=== PATIENT | male | born 1945 | race Asian ===

== ENCOUNTER 2017-06-28 08:18 | Emergency (ER) | payer MEDICARE, BC ==
[~2017-06-28] VITALS: Ht 167.6 cm; Wt 91.2 kg
[~2017-06-28 08:18] MED LIST: ASPIRIN81 M1; BISOPROLOL FUMAR5 MG; CALCITRIOL0.25 MCG; HYDRALAZINE HCL50 MG; HYDROXYZINE HCL50 MG; JALYN 0.5-0.41 EACH; LOSARTAN POTAS100 MG; LOSARTAN POTASS25 MG; LOVASTATIN10 MG; PANTOPRAZOLE SO40 MG PO; RENVELA800 MG PO; [UNRECOGNIZED DRUG - OTHER]; [UNRECOGNIZED DRUG - OTHER]
--- OUTSIDE RECORDS SUMMARY | 2017-06-28 08:22 | XMS REPORT | Clinical Summary ---
Author Author MAHI [facility] Address Unknown Phone Unavailable Care Team Providers Care Neurology Epilepsy Physician Name Role Phone PCP Unavailable Allergies Active Allergy Reactions Severity Noted Date Comments Hydromorphone Other (See Comments) High 06/02/2012 Increase heart rate and lethargy Current Medications Prescription Sig. Disp. Refills Start End Date Status Date Children's Aspirin 81 mg Take 81 mg by mouth 3 Active Chew (three) times a week , and Sat. triamcinolone acetonide Inject 10 mg Active (KENALOG) 10 mg/mL intramuscularly once. injection Once a month testosterone cypionate Inject intramuscularly Active (DEPOTESTOTERONE every 30 (thirty) days. CYPIONATE) 100 mg/mL injection loratadine (CLARITIN) 10 Take 10 mg by mouth Active mg tablet daily. pantoprazole (PROTONIX) Take 40 mg by mouth daily Active 40 MG tablet . zolpidem (AMBIEN) 10 mg Take 10 mg by mouth every Active tablet night as needed for Insomnia. acetaminophen (TYLENOL) Take 500 mg by mouth Active 500 MG tablet every 6 (six) hours as needed for Pain. sevelamer (RENVELA) 800 Take 800 mg by mouth 5 Active mg tablet (five) times daily . sildenafil Take 0.5 tablets (10 mg 90 tablet 3 10/09/19 10/09/19 Active (REVATIO,VIAGRA) 20 mg total) by mouth 2 (two) 17 18 tabletIndications: times daily. Primary pulmonary hypertension (HCC) multivitamin with Take 1 tablet by mouth Active minerals tablet daily TAKES RENAL TAB WITH ZINC . hydrOXYzine (ATARAX) 50 Take 25 mg by mouth every Active MG tablet 6 (six) hours as needed for Itching . midodrine (PROAMATINE) 5 Take 2 tablets (10 mg 24 tablet 5 03/28/20 Active MG tablet total) by mouth 3 (three) 17 times a week On dialysis days. montelukast (SINGULAIR) Take 10 mg by mouth daily Active 10 mg tablet as needed. lanthanum (FOSRENOL) 1000 Take 1,000 mg by mouth 3 Active MG chewable tablet (three) times daily with meals. cinacalcet (SENSIPAR) 60 Take 60 mg by mouth Active MG tablet daily. vortioxetine (TRINTELLIX) Take 1 tablet by mouth Active 5 mg Tab daily. megestrol (MEGACE) 400 Take 100 mg by mouth Active mg/10 mL (40 mg/mL) daily. suspension ALPRAZolam (XANAX) 0.25 Take 0.25 mg by mouth 2 Active MG tablet (two) times daily as needed for Anxiety. oseltamivir (TAMIFLU) 30 Take 30 mg by mouth as Active MG capsule directed 1 capsule after every hemodialysis appointment . cyanocobalamin (VITAMIN Inject 1,000 mcg 06/21/19 Discontin B-12) 1,000 mcg/mL intramuscularly every 30 18 ued injection (thirty) days . cinacalcet (SENSIPAR) 30 Take 60 mg by mouth daily 10/27/19 Discontin MG tablet . 17 ued folic acid-multivitamins Take 1 tablet by mouth 02/24/20 Discontin (NEPHRO-JUVE) 0.8 mg Tab daily. 17 ued tablet calcitriol (ROCALTROL) Take 0.5 mcg by mouth 3 08/18/19 Discontin 0.5 MCG capsule (three) times a week. 17 ued hydrOXYzine (ATARAX) 50 Take 50 mg by mouth 3 08/18/19 Discontin MG tablet (three) times daily as 17 ued needed for Itching. sildenafil Take 0.5 tablets (10 mg 90 tablet 3 05/04/20 10/09/19 Discontin (REVATIO,VIAGRA) 20 mg total) by mouth 2 (two) 16 17 ued tabletIndications: times daily. Primary pulmonary hypertension (HCC) citalopram (CELEXA) 20 MG Take 40 mg by mouth daily 09/15/19 Discontin tablet . 17 ued midodrine (PROAMATINE) 5 Take 1 tablet (5 mg 30 tablet 5 08/18/19 MG tablet total) by mouth 2 (two) 17 17 times daily for 30 days On dialysis days only.. DULoxetine (CYMBALTA) 60 Take 60 mg by mouth 10/27/19 Discontin MG capsule daily. 17 ued midodrine (PROAMATINE) 5 Take 10 mg by mouth 3 02/24/20 Discontin MG tablet (three) times a week 17 ued Prior to dialysis. UNKNOWN Take 3 tablets by mouth 3 01/28/20 Discontin (three) times a week Med 17 ued Name: Vitamin D Calcitriol . HYDROXYZINE HCL ORAL Take 50 mg by mouth daily 01/28/20 Discontin as needed. 17 ued vortioxetine (TRINTELLIX) Take 10 mg by mouth 01/28/20 Discontin 10 mg Tab daily. 17 ued dronabinol (MARINOL) 10 Take 10 mg by mouth 2 03/08/20 Discontin MG capsule (two) times daily before 17 ued meals. midodrine (PROAMATINE) 5 Take 5 mg by mouth 3 03/25/20 Discontin MG tablet (three) times a week 17 ued after dialysis. midodrine (PROAMATINE) 5 Take 1 tablet (5 mg 90 tablet 1 03/25/20 Discontin MG tablet total) by mouth 3 (three) 17 17 ued times a week after dialysis. Active Problems Patient Care Coordination Note Interim Testing RHC, 02/23/17 SUMMARY OF FINDINGS 1. Right atrial pressure 7/7/5 mmHg. 2. Right ventricular pressure 40/1/5 mmHg. 3. Pulmonary artery pressure 39/19/27 mmHg. 4. Pulmonary capillary wedge pressure 13/13/12 mmHg. 5. By KEVIN calculation, cardiac output 4.26 L per minute with a cardiac index of 2.45 L/min/m2. The PA saturation was 73 and the FA saturation was 99. 6. The PVR was 3.[address] Chest without contrast, 09/14/16 Impression: 1. Increase in size of a now moderate partially loculated right-sided pleural effusion. Two adjacent rounded densities more likely represent areas of rounded atelectasis. There is a stable calcified granuloma in the right apex. In the right middle lobe, there is a rounded density adjacent to the effusion measuring up to 5.0 x 3.8 cm. These areas can be closely followed by CT or correlated with a PET-CT scanning to exclude the possibility of a mass 2. Trace left-sided pleural effusion with some adjacent likely atelectasis. 3. Cardiomegaly. 4. Atherosclerotic vascular disease with coronary atherosclerosis. 2DEcho, 09/06/16 Summary: Regular sinus rhythm during the exam. Technically fair exam. The LV apex is incompletely visualized due to foreshortening. The other segments are hypokinetic. Estimated LVEF by qualitative assessment is shtjnsrc-uz-vrtlurst reduced (30%). LVIDd 7 cm. Unable to reliably assess LV ejection fraction. LA size is severely enlarged. RV chamber size is markedly enlarged (>4 cm basal diameter) with decreased systolic function. At least moderate MR is present. 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 Estimated Peak systolic pressure is at least 60-65 mmHg. The estimated RA pressure by IVC dynamics 11-15 mmHg. Aortic root size (Sinus of Valsalva diameter) is mildly dilated at approximately 3.8 cm. No significant pericardial effusion is visualized. 2DEcho 07/09/2015 1) The left ventricle is moderately dilated. 2) Severely decreased overall LV systolic function. 3) Estimated LVEF is 25-29%, LVIDd 6.4. 4) The following segment is akinetic:apex. Other bowen hypokinetic. 5) Grade II LV diastolic dysfunction. 6) Severely enlarged left atrium (39 ml/m2) 7) The right ventricular global systolic function is depressed. 8) Mild aortic regurgitation is present. 9) There is mild to moderate mitral regurgitation observed. 10) The PA systolic pressure is estimated at 50-55 mmHg. RAP:5-10mmHg. 11) Compared to the previous study 05/01/2014 increased systolic PAP from 30- 35 mmHg. No change in LV systolic function. [facility] 07/04/15 1. Mean right atrial pressure 11 mmHg. 2. RV pressure 61/3 mmHg. 3. Pulmonary arterial pressure 52/10, mean 34 mmHg. 4. Mean pulmonary capillary wedge pressure 15 mmHg. 5. Transpulmonary gradient at 19 mmHg. 6. Cardiac output 5.1 L per minute with a cardiac index of 2.7. 7. Pulmonary vascular resistance 3.5 Wood units. 2DEcho 08/08/13 1) The endocardium is partially visualized. The apex is foreshortened; cannot rule out apical akinesis. The other bowen are hypokinetic. Satisfactory apical 4 chamber shows LVEV > 200 ml. 2) Severely decreased overall LV systolic function. 3) Estimated LVEF is 25-29%. 4) Severely enlarged left atrium (>39 ml/m2) 5) The right ventricular cavity size is normal. 6) The PA systolic pressure is estimated at 45-50 mmHg. 7) The RAP is estimated to be 6-10 mmHg. 8) Mild to moderate aortic regurgitation is present. 9) There are changes noted when compared to the previous study done on 06/05/12 : The prior study is technically superior and clearly shows Aneurysmal LV apex which is not seen on the current exam due to apical foreshortening. 2DEcho 06/05/2012 1) Mild concentric LV hypertrophy. The following segments are akinetic: Distal septum, apex. inferior and inferolateral. The other segments are hypokinetic. 2) Estimated LVEF is 25-29%. Calculated EF by Davidson;s 27%. 3) The RAP is estimated to be 6-10 mmHg. The PA systolic pressure is estimated at 20-25 mmHg. 4) There are changes noted when compared to the previous study done on 2012 LV systolic function has slightly decreased. 2DEcho 05/30/2012 1) The left ventricle is moderately dilated. 2) The following segments are akinetic: Mid-distal anterior septum; all apical segments. 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 The other segments are mildly hypokinetic. 3) Moderately decreased overall LV systolic function. 4) Estimated LVEF is 30-34%. 5) Severely enlarged left atrium (>39 ml/m2) 6) Estimated PA systolic pressure is estimated at 22mmHg plus RA pressure. PULMONARY TESTING: Date FEV1 % Predicted DLCO 08/06/13 1.63 61 12.22 Right and Left Heart Catheterization 07/20/2013 INDICATIONS FOR PROCEDURE 1. Coronary artery disease. 2. Congestive heart failure due to ischemic cardiomyopathy. 3. Evaluation for orthotopic heart transplantation. 4. End-stage renal disease. SUMMARY OF HEMODYNAMIC FINDINGS 1. Mean right atrial pressure 10 mmHg. 2. Right ventricular pressure 51/7 mmHg. 3. PA pressure 50/21 mmHg, mean 34 mmHg. 4. Mean pulmonary capillary wedge pressure 18 mmHg. 5. By thermodilution calculation, cardiac output 5.8 L per minute with a cardiac index of 3.1 (please note that this cardiac output was felt to be falsely elevated due to high output through the AV fistula). 6. Transpulmonary gradient 16 mmHg. 7. Transpulmonary gradient of 2.8 Wood units. SUMMARY OF ANGIOGRAPHIC FINDINGS 1. The entire left and right coronary systems are heavily calcified. 2. There is mild plaquing involving the left main coronary artery. 3. The left anterior descending artery is completely occluded, just distal to the 1st diagonal branch. 4. The left internal mammary artery graft to the left anterior descending artery is patent. 5. 60% stenosis in the proximal portion of the left circumflex coronary atery. 6. The dominant obtuse marginal branch is completely occluded at its origin. 7. There is a patent saphenous vein graft to the 1st obtuse marginal branch. 8. The right coronary artery is dominant, heavily calcified and diffusely diseased. There are multiple, serial stenosis, most severe in the mid portion, where there is approximately 95% stenosis. 9. The saphenous vein graft to the posterior descending artery is occluded. MVO2: Date VO2 max % Predicted RER 02/27/13 15.4 ml/kg/min 33.8 1.33 Colonoscopy :01/01/2010 -External Hemorrhoids in the rectum -Diverticulosis seen Problem Noted Date Heart failure (HCC) 02/23/2017 Shortness of breath 01/14/2017 Primary pulmonary hypertension (HCC), PVR 3.5 carlson per cath 07/04/15 07/31/2015 Chronic systolic heart failure (HCC) 07/04/2015 Chronic combined systolic and diastolic CHF (congestive heart failure) 08/15 ([facility]) Hyperkalemia 08/15/2014 ICD (implantable cardioverter-defibrillator), single, in situ 06/25/2014 Chronic congestive heart failure (HCC) 07/03/2013 Overview: NYHA Class II, Stage D , listed for heart and kidney TX Ischemic CMP w/LVEF 25-29%, LVIDd 6 cm per Echo 08/08/13 MVO2 15.4 (03/04) MVO2 18 (05/05) Currently on Lopressor 12.5mg/d, Cozaar 25 mg/d on non dialysis days, not on aldactone or diuretic, no device? SNOMED/[place] [id number] ESRD (end stage renal disease) (HCC) HTN (hypertension) Hyperlipidemia [place] kidney Diverticulitis Peritonitis (HCC) Anemia Hyperparathyroidism (HCC) BPH (benign prostatic hyperplasia) Coronary artery disease Awaiting organ transplant status Encounters Date Type Specialty Care Team Description 06/21/2017 Office Visit Transplant Edgar Weston Chronic combined systolic MD and diastolic CHF (congestive heart failure) (HCC) 06/20/2017 Orders Only Transplant Sintia George RN Chronic combined systolic and diastolic CHF (congestive heart failure) ([facility]) (Primary Dx) 04/06/2017 Documentation Transplant Kyler Rockwell RN 03/28/2017 Orders Only Transplant Sintia George RN 03/25/2017 Orders Only Transplant Elizabeth Salgado RN 03/08/2017 Office Visit Transplant Edgar Weston Chronic combined systolic MD and diastolic CHF (congestive heart failure) 03/07/2017 Telephone Transplant Samantha Ann 02/23/2017 Hospital Gallito Nevarez MD 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[facility]);Chronic combined systolic and diastolic heart failure (HCC);Coronary artery disease involving [place] heart without angina pectoris, unspecified vessel or lesion type;ESRD (end stage renal disease) ([facility]);Essential hypertension;Primary pulmonary hypertension (HCC) 02/23/2017 Orders Only General Internal Medicine 02/23/2017 Procedure Pass 02/23/2017 Surgery Gallito Nevarez MD R CATH 02/01/2017 Telephone Transplant Carol Vidales NP Follow-up 01/27/2017 Evaluation Transplant Evelia Campos MD Awaiting organ transplant status (Primary Dx) 01/26/2017 Procedure Pass 01/19/2017 Telephone Transplant Carol Vidales NP Appointment 01/17/2017 Telephone Transplant Celi Wilde, RN Appointment 01/07/2017 Telephone Transplant Ángela Lucas Appointment 01/07/2017 Telephone Transplant Viktoriya Martinez RN Waitlist Maintenance 01/06/2017 Telephone Transplant Kyler Rockwell RN Waitlist Maintenance 12/29/2016 Telephone Transplant Kyler Rockwell RN PRA result 12/29/2016 Telephone Transplant Samantha Ann Follow-up 12/28/2016 Lab Requisition Lab Evelia Campos MD 12/23/2016 Telephone Transplant Sintia George RN Results 12/21/2016 Office Visit Transplant Jostin Kessler MD Shortness of breath 12/21/2016 Office Visit Transplant Edgar Weston, Awaiting organ transplant MD status;Chronic combined systolic and diastolic CHF (congestive heart failure) 12/20/2016 Telephone Transplant Samantha Ann 12/16/2016 Telephone Central Scheduling Samantha Ann 11/08/2016 Committee Transplant Kyler Rockwell RN Review 11/05/2016 Telephone Transplant Samantha Ann Medication Management 10/26/2016 Office Visit Transplant Edgar Weston, Chronic combined systolic MD and diastolic CHF (congestive heart failure) 10/25/2016 Telephone Central Scheduling Samantha Ann 10/20/2016 Hospital Radiology Jun Saunders MD Pleural effusion on Encounter right;Abnormal screening computed tomography (CT) of lung 10/20/2016 Ancillary Lab Jun Saunders MD Orders 10/13/2016 Orders Only Critical Care Medicine Jun Saunders MD Pleural effusion on right (Primary Dx);Abnormal screening computed tomography (CT) of lung 10/08/2016 Orders Only Transplant Sintia George RN Primary pulmonary hypertension (HCC) 09/14/2016 Office Visit Transplant Edgar Weston, Awaiting organ transplant MD status (Primary Dx);Hyperlipidemia, unspecified hyperlipidemia type;Chronic combined systolic and diastolic CHF (congestive heart failure);Shortness of breath;Pleural effusion;Chronic combined systolic and diastolic CHF (congestive heart failure) (HCC) 09/14/2016 Hospital Radiology Edgar Weston, Shortness of Encounter MD breath;Pleural effusion 09/08/2016 Telephone Transplant Samantha Ann 09/06/2016 Hospital Cardiology Edgar Weston, Chronic combined systolic Encounter MD and diastolic CHF (congestive heart failure) 08/18/2016 Telephone Transplant Samantha Ann 08/17/2016 Office Visit Transplant Edgar Weston, Chronic combined systolic MD and diastolic CHF (congestive heart failure) (Primary Dx);Chronic combined systolic and diastolic CHF (congestive heart failure) (HCC) 08/16/2016 Telephone Transplant Samantha Ann 08/11/2016 Telephone Transplant Samantha Ann 07/22/2016 Follow-Up Transplant Delmi Bhakta MD Awaiting organ transplant Carol Vidales NP status (Primary Dx) after 06/27/2016 Immunizations Name Dates Previously Given Next Due Influenza TIV (IM) 02/20/2017 Social History Tobacco Use Types Packs/Day Years Used Date Never Smoker Smokeless Tobacco: Never Used Alcohol Use Drinks/Week oz/Week Comments No Sex Assigned at Date Recorded Not on file Last Filed Vital Signs Vital Sign Reading Time Taken Blood Pressure 99/55 06/21/2017 10:31 AM WINDING INSPECTOR Pulse 86 06/21/2017 10:31 AM WINDING INSPECTOR Temperature 36.6 C (97.8 F) 06/21/2017 10:31 AM WINDING INSPECTOR Respiratory Rate 18 06/21/2017 10:31 AM WINDING INSPECTOR Oxygen Saturation 99% 06/21/2017 10:31 AM WINDING INSPECTOR Inhaled Oxygen - - Concentration Weight 67.7 kg (149 lb 4.8 oz) 06/21/2017 10:31 AM WINDING INSPECTOR Height 163.2 cm (5' 4.25") 06/21/2017 10:31 AM WINDING INSPECTOR Body Mass Index 25.43 06/21/2017 10:31 AM WINDING INSPECTOR Plan of Treatment Health Maintenance Due Date Last Done Comments INFLUENZA VACCINE 02/20/2017 Implants Implanted Type Area Full Stack Python Developer Device Expiration Model / Identifier Date Serial / Lot Electrode,Subcutaneous Tripolar ICD Left: [place] 01/22/2016 3010 / Q-Trak 45cm - [id number] Chest [employer] [id number] Implanted: Qty: 1 on 06/25/2014 by Umer / Kalie Barfield MD Defibrillator,Icd Pulse Generator ICD Left: FIA Formula E 04/11/2015 1010 / Sq-Rx - [id number] [facility] [employer] [id number] Implanted: Qty: 1 on 06/25/2014 by Jacobo / Kalie Barfield MD Procedures Procedure Name Priority Date/Time Associated Diagnosis Comments R CATH 02/23/2017 Encounter for 2:19 PM CDT pre-transplant evaluation for kidney transplant Case Notes POP6 Special Needs PER ESTELA HE PER JEROD TO PLACE ON [facility] after 06/27/2016 Results * B-type Natriuretic Factor (BNP) (06/21/2017 10:17 AM) Only the most recent of 6 results within the time period is included. Component Value Ref Range BNP 848 (H) 0 - 100 pg/mL Specimen [place]forming [place] [address] * CBC with platelet count + automated diff (06/21/2017 10:16 AM) Only the most recent of 7 results within the time period is included. Component Value Ref Range WBC 6.3 3.5 - 10.5 K/ L RBC 4.45 (L) 4.63 - 6.08 M/ L Hemoglobin 13.8 13.7 - 17.5 GM/DL Hematocrit 44.3 40.1 - 51.0 % MCV 99.6 (H) 79.0 - 92.2 fL MCH 31.0 25.7 - 32.2 pg MCHC 31.2 (L) 32.3 - 36.5 GM/DL RDW 14.2 11.6 - 14.4 % Platelets 197 150 - 450 K/CU MM MPV 9.8 9.4 - 12.4 fL nRBC 0 0 - 0 /100 WBC % Neutros 69 % % Lymphs 13 % % Monos 11 % % Eos 5 % % Baso 1 % # Neutros 4.33 1.78 - 5.38 K/ L # Lymphs 0.80 (L) 1.32 - 3.57 K/ L # Monos 0.70 0.30 - 0.82 K/ L # Eos 0.30 0.04 - 0.54 K/ L # Baso 0.04 0.01 - 0.08 K/ L Immature 1 0 - 1 % Granulocytes-Relative Specimen Performing Laboratory Blood [address] [address] * CBC with platelet count + automated diff (06/21/2017 10:16 AM) Only the most recent of 7 results within the time period is included. Specimen Performing Laboratory Blood Narrative The following orders were created for panel order CBC with platelet count + automated diff. Procedure Abnormality Status --------- - ------ CBC with platelet count ...[[id number]]AbnormalFinal result Please view results for these tests on the individual orders. * Hepatic function panel (06/21/2017 10:16 AM) Only the most recent of 2 results within the time period is included. Component Value Ref Range Protein, Total 7.4 6.0 - 8.3 gm/dL Albumin 3.5 3.5 - 5.0 g/dL Total Bilirubin 0.5 0.2 - 1.2 mg/dL Bilirubin, Direct 0.2 0.1 - 0.5 mg/dL Alkaline Phosphatase 77 40 - 150 U/L AST 12 5 - 34 U/L ALT 11 6 - 55 U/L Specimen Performing [place] [address] * Basic Metabolic Panel (06/21/2017 10:16 AM) Only the most recent of 7 results within the time period is included. Component Value Ref Range Sodium 139 136 - 145 meq/L Potassium 4.6 3.5 - 5.1 meq/L Chloride 96 (L) 98 - 107 meq/L CO2 30 (H) 22 - 29 meq/L BUN 37 (H) 7 - 21 mg/dL Creatinine 6.45 (H) 0.57 - 1.25 mg/dL Glucose 96 70 - 105 mg/dL Calcium 10.0 8.4 - 10.2 mg/dL EGFR 9Comment: ESTIMATED GFR IS NOT ACCURATE mL/min/1.73 sq m CREATININE CLEARANCE IN PREDICTING GLOMERULAR FILTRATION RATE. ESTIMATED GFR IS NOT APPLICABLE FOR DIALYSIS PATIENTS. Specimen Performing Laboratory Blood [place] [id number] * TRANSFUSION SERVICE REPORT - SCAN (02/28/2017 5:41 PM) Only the most recent of 2 results within the time period is included. * CARDIAC CATH REPORT - SCAN (02/24/2017 11:32 PM) * Prepare RBC (02/23/2017 7:33 PM) Component Value Ref Range Unit ABO A Pos UNIT NUMBER [id number] Status WORK IN PROGRESS Blood Bank Product RED BLOOD CELLS PRODUCT CODE T9177P90 Unit ABO A Pos UNIT NUMBER [id number] Status WORK IN PROGRESS Blood Bank Product RED BLOOD CELLS PRODUCT CODE G1236I52 CROSSMATCH COMPATIBLE CROSSMATCH COMPATIBLE Specimen Performing Laboratory [facility] [place] * ECG 12 lead (02/23/2017 12:18 PM) Specimen Performing Laboratory GE MUSE Narrative Ventricular Rate 87 BPM Atrial Rate 87 BPM P-R Interval 176 ms QRS Duration 100 ms Q-T Interval 372 ms QTC Calculation(Bazett) 447 ms P [place] 63 degrees R [place] 86 degrees T [place] -3 degrees Normal sinus rhythm Cannot rule out Inferior infarct (cited on or before 26-MAY-2012) ST & T wave abnormality, consider lateral ischemia Abnormal ECG When compared with ECG of 29-DEC-2015 11:36, T wave inversion more evident in Inferior leads Nonspecific T wave abnormality now evident in Anterior leads T wave inversion less evident in Lateral leads Confirmed by MD DAMON JORGE ([id number]) on 02/23/2017 2:27:52 PM Procedure Note Interface, External Ris In - 02/23/2017 2:28 PM CDT Ventricular Rate 87 BPM Atrial Rate 87 BPM P-R Interval 176 ms QRS Duration 100 ms Q-T Interval 372 ms QTC Calculation(Bazett) 447 ms P [place] 63 degrees R [place] 86 degrees T [place] -3 degrees Normal sinus rhythm Cannot rule out Inferior infarct (cited on or before 26-MAY-2012) ST & T wave abnormality, consider lateral ischemia Abnormal ECG When compared with ECG of 29-DEC-2015 11:36, T wave inversion more evident in Inferior leads Nonspecific T wave abnormality now evident in Anterior leads T wave inversion less evident in Lateral leads Confirmed by MD DAMON JORGE ([id number]) on 02/23/2017 2:27:52 PM * Type and screen, automated (02/23/2017 11:50 AM) Component Value Ref Range ABO/RH AUTOMATED (BEAKER) A POSITIVE Ab Scrn NEGATIVE Specimen Performing Laboratory Blood [address] [address] * aPTT (02/23/2017 11:50 AM) Only the most recent of 2 results within the time period is included. Component Value Ref Range PTT 32.9 22.5 - 36.0 seconds Specimen Performing Laboratory Blood [address] [address] Narrative Within 24 hours, if on Coumadin * Prothrombin time/INR (02/23/2017 11:50 AM) Only the most recent of 2 results within the time period is included. Component Value Ref Range Protime 12.6 11.7 - 14.7 seconds INR 1.0 <=5.9 Specimen Performing Laboratory Blood [address] [address] Narrative RECOMMENDED COUMADIN/WARFARIN INR THERAPY RANGES STANDARD DOSE: 2.0 - 3.0 Includes: PROPHYLAXIS for venous thrombosis, systemic embolization; TREATMENT for venous thrombosis and/or pulmonary embolus. HIGH RISK: Target INR is 2.5-3.5 for patients with mechanical heart valves. Within 24 hours, if on Coumadin * Flow PRA Class I and II (12/21/2016 12:00 PM) Component Value Ref Range Date of Serum [id number] Serum# [id number] Flow PRA Class I and II See Scanned Report Specimen Performing Laboratory Blood [facility] IMMUNE EVALUATION LAB [facility] [place], [place]:[facility] [address] [place] [address] * Body fluid culture + gram stain (10/20/2016 7:52 PM) Component Value Ref Range Result No growth Gram Stain Result 1+ WBCs Gram Stain Result No organisms seen Specimen Performing Laboratory Body Fluid - Pleural, [facility] Right [address] [place] [id number] * pH, body fluid (10/20/2016 7:35 PM) Component Value Ref Range pH, Body Fluid 7.37 Specimen Performing Laboratory Body Fluid - Pleural [address] [address] * Glucose, body fluid (10/20/2016 6:26 PM) Component Value Ref Range Glucose, Body Fluid 70 70 - 110 mg/dL Specimen Performing Laboratory Body Fluid - Pleural, [facility] Right [address] [place] [id number] Narrative Absence of reference range indicates that normals have not been defined. Assay performance has not been validated for this type of specimen. * Protein, body fluid (10/20/2016 6:26 PM) Component Value Ref Range Protein, Fluid 2.5 Light's criteria identifies effusions if one or more are present: Pleural to serum protein ratio of more than 0.5; Pleural to Serum LDH of more than 0.6; Pleural LDH of more than two third of upper serum reference limit g/dL Specimen Performing Laboratory Body Fluid - Pleural, [facility] Right [address] [place] [address] Narrative Absence of reference range indicates that normals have not been defined. Assay performance has not been validated for this type of specimen. * Lactate dehydrogenase (LDH), body fluid (10/20/2016 6:26 PM) Component Value Ref Range LDH, Fluid 337 Light's criteria identifies effusions if one or more are present: Pleural to serum protein ratio of more than 0.5; Pleural to serum LDH ratio of more than 0.6; Pleural LDH more than two third of upper serum reference limit U/L Specimen Performing Laboratory Body Fluid - Pleural, [facility] Right [address] [place] [address] Narrative Absence of reference range indicates that normals have not been defined. Assay performance has not been validated for this type of specimen. * XR chest 1 view portable / bedside (10/20/2016 4:33 PM) Specimen Performing Laboratory [facility] Impressions : No pneumothorax identified by x-ray. Signed: Fariha Stephen MD Report Verified Date/Time:10/20/2016 16:34:29 Reading Location: [address] Ultrasound Reading Room Narrative FINAL REPORT HISTORY : s/p thoracentesis. Comparison: 06/25/2014 Comment: Single portable view of the chest was obtained. There is a tortuous/ectatic thoracic aorta with some atherosclerotic calcification. The cardiac silhouette size is enlarged. There are some findings of mild pulmonary venous congestion. There is a small residual right-sided pleural effusion with a small left-sided pleural effusion. There is some adjacent airspace disease which may represent atelectasis. No pneumothorax is identified by x-ray. Procedure Note Interface, External Ris In - 10/20/2016 4:36 PM CDT FINAL REPORT HISTORY : s/p thoracentesis. Comparison: 06/25/2014 Comment: Single portable view of the chest was obtained. There is a tortuous/ectatic thoracic aorta with some atherosclerotic calcification. The cardiac silhouette size is enlarged. There are some findings of mild pulmonary venous congestion. There is a small residual right-sided pleural effusion with a small left-sided pleural effusion. There is some adjacent airspace disease which may represent atelectasis. No pneumothorax is identified by x-ray. IMPRESSION : No pneumothorax identified by x-ray. Signed: Fariha Stephen MD Report Verified Date/Time: 10/20/2016 16:34:29 Reading Location: [place] [id number] Ultrasound Reading Room * CT chest without IV contrast (10/20/2016 3:24 PM) Only the most recent of 2 results within the time period is included. Specimen Performing Laboratory [facility] [employer] Narrative FINAL REPORT CT of the chest, without contrast Clinical History:Known CT findings as demonstrated on 09/14 --> pleural effusion---> please perform after u/s thoracentesis Technique: CT of the chest is performed without intravenous contrast administration. This exam was performed according to our departmental dose optimization program which includes automated exposure control, adjustment of the mA and/or kV according to patient's size and/or use of iterative reconstructive technique. Comparison Film:September 14, 2016 Discussion: There is no supraclavicular, axillary, mediastinal or hilar lymphadenopathy. Heart is markedly enlarged, no pericardial effusion. The main pulmonary artery and ascending thoracic aorta are both enlarged, measuring 4.2 cm, and 4.5 cm respectively. There is atherosclerotic calcification of the aorta, and coronary arteries. There is a loculated small right-sided pleural effusion, decreased since the prior exam, and small foci of air are present in the pleural space, probably related to recent thoracentesis. Peripheral opacities in right middle, and lower lobes are stable, and most likely represent rounded atelectasis. At the left lower lobe, there is also a small area of atelectasis/consolidation that is unchanged. There is apparent mild smooth thickening of the right pleura. The central airways are patent, no significant bronchiectasis, or bronchial wall thickening. Partially imaged upper abdomen is unremarkable. Osseous structures demonstrate degenerative changes. Status post median sternotomy. Impression: Small loculated right pleural effusion, along with minimal pneumothorax. Stable peripheral opacities in the right lung likely represent rounded atelectasis. Stable appearance of atelectasis/consolidation in the left lower lobe. Cardiomegaly and atherosclerotic disease. Mildly aneurysmal ascending thoracic aorta. Enlargement of main pulmonary artery may reflect pulmonary hypertension. Signed: July Grady MD Report Verified Date/Time:10/20/2016 17:30:57 Reading Location: [facility] C013Y CT Body Reading Room Procedure Note Interface, External Ris In - 10/20/2016 5:33 PM CDT FINAL REPORT CT of the chest, without contrast Clinical History: Known CT findings as demonstrated on 09/14 --> pleural effusion ---> please perform after u/s thoracentesis Technique: CT of the chest is performed without intravenous contrast administration. This exam was performed according to our departmental dose optimization program which includes automated exposure control, adjustment of the mA and/or kV according to patient's size and/or use of iterative reconstructive technique. Comparison Film: September 14, 2016 Discussion: There is no supraclavicular, axillary, mediastinal or hilar lymphadenopathy. Heart is markedly enlarged, no pericardial effusion. The main pulmonary artery and ascending thoracic aorta are both enlarged, measuring 4.2 cm, and 4.5 cm respectively. There is atherosclerotic calcification of the aorta, and coronary arteries. There is a loculated small right-sided pleural effusion, decreased since the prior exam, and small foci of air are present in the pleural space, probably related to recent thoracentesis. Peripheral opacities in right middle, and lower lobes are stable, and most likely represent rounded atelectasis. At the left lower lobe, there is also a small area of atelectasis/consolidation that is unchanged. There is apparent mild smooth thickening of the right pleura. The central airways are patent, no significant bronchiectasis, or bronchial wall thickening. Partially imaged upper abdomen is unremarkable. Osseous structures demonstrate degenerative changes. Status post median sternotomy. Impression: Small loculated right pleural effusion, along with minimal pneumothorax. Stable peripheral opacities in the right lung likely represent rounded atelectasis. Stable appearance of atelectasis/consolidation in the left lower lobe. Cardiomegaly and atherosclerotic disease. Mildly aneurysmal ascending thoracic aorta. Enlargement of main pulmonary artery may reflect pulmonary hypertension. Signed: July Grady MD Report Verified Date/Time: 10/20/2016 17:30:57 Reading Location: [facility] C013Y CT Body Reading Room * Body fluid cell count with differential (10/20/2016 3:00 PM) Component Value Ref Range Appearance Turbid (A) Clear Color Yellow (A) Colorless, Straw RBCs 265647 (H) <=1 /cu mm Adjusted WBC Count 200 (H) <=5 /cu mm Lining Cells 0 <=1 /cu mm % Segs 12 % % Lymphs 74 % % Monos 14 % % Eos 0 % % Baso 0 % Container Body Fluid EDTA Tube Specimen Performing Laboratory Body Fluid - Pleural, [facility] Right [address] [place] [address] * US thoracentesis (10/20/2016 2:53 PM) Specimen Performing Laboratory [facility] Narrative FINAL REPORT HISTORY : Pleural Effusion COMPARISON : None Comment : The procedure, including the risks and complications of the procedure, were explained to the patient and the patient consented. A pocket of fluid was identified in the right chest. This area was marked. The area was prepped and draped in the usual sterile fashion. 1% lidocaine was applied to the skin and deep soft tissues. A 16-gauge angiocath catheter was inserted and removed from the pleural space and approximately 0.85 liters of dark serosanguineous fluid was aspirated from the chest. Specimens were sent to the lab and cytology.. A postprocedure CT demonstrated a small basilar pneumothorax. The patient was asymptomatic and was oxygenating at 100%. A follow-up chest x-ray was performed after approximately one hour that did not demonstrate a pneumothorax. The patient was discharged with instructions to return to the nearest emergency room if experiencing any sudden onset of chest pain or shortness of breath. The ordering physician, Dr. Saunders was notified and will follow-up with the patient. Impression: Successful ultrasound guided, right sided thoracentesis with aspiration of 0.85 liters of dark serosanguineous fluid. Please see above. Signed: Fariha Stephen MD Report Verified Date/Time:10/20/2016 16:55:26 Reading Location: [facility] B1 P006J Ultrasound Reading Room Procedure Note Interface, External Ris In - 10/20/2016 4:57 PM CDT FINAL REPORT HISTORY : Pleural Effusion COMPARISON : None Comment : The procedure, including the risks and complications of the procedure, were explained to the patient and the patient consented. A pocket of fluid was identified in the right chest. This area was marked. The area was prepped and draped in the usual sterile fashion. 1% lidocaine was applied to the skin and deep soft tissues. A 16-gauge angiocath catheter was inserted and removed from the pleural space and approximately 0.85 liters of dark serosanguineous fluid was aspirated from the chest. Specimens were sent to the lab and cytology.. A postprocedure CT demonstrated a small basilar pneumothorax. The patient was asymptomatic and was oxygenating at 100%. A follow-up chest x-ray was performed after approximately one hour that did not demonstrate a pneumothorax. The patient was discharged with instructions to return to the nearest emergency room if experiencing any sudden onset of chest pain or shortness of breath. The ordering physician, Dr. Saunders was notified and will follow-up with the patient. Impression: Successful ultrasound guided, right sided thoracentesis with aspiration of 0.85 liters of dark serosanguineous fluid. Please see above. Signed: Fariha Stephen MD Report Verified Date/Time: 10/20/2016 16:55:26 Reading Location: [facility] P006J Ultrasound Reading Room * Cytology (10/20/2016 2:30 PM) Component Value Ref Range Case Report Medical Cytology Report Case: [id number] Authorizing Provider: Jun Saunders MD Collected: 10/20/2016 1430 Ordering Location: [facility] Radiology Ultrasound Received: 10/20/2016 0782 Pathologist: Moreno Chauhan MD Specimen: Pleural, Right DIAGNOSIS RIGHT PLEURAL FLUID (CYTOSPINS): - NO MALIGNANT CELLS IDENTIFIED COMMENT Cytospins and cell block sections show rare mesothelial cells, macrophages in a background of scattered lymphocytes and blood elements. No diagnostic features of malignancy are seen. If clinically discordant, procurement of additional material may be considered when fluid re-accumulates. CPT Code(s) 85177, 08645 CLINICAL DATA Right pleural effusion, history of heart failure SPECIMEN SOURCE RIGHT PLEURAL FLUID GROSS DESCRIPTION 700 mls bloody; 4 cytospins Collected: [id number] Received: [id number] STATEMENT OF ADEQUACY Satisfactory Technical component was [facility], Department of performed at Pathology, [address] [place] [address], Professional component [facility], Department of was performed at Pathology, [address] [place] [address], Specimen Performing Laboratory Body Fluid - Pleural, [facility] Right [address] [place] [address] * Platelet count (10/20/2016 12:10 PM) Component Value Ref Range Platelets 162 150 - 430 K/CU MM Specimen Performing [place] [address] * Lipid panel (09/14/2016 9:57 AM) Component Value Ref Range Triglycerides 74 mg/dL Cholesterol 174 mg/dL HDL 66 mg/dL LDL Calculated 93 mg/dL Specimen Performing [place] [address] Narrative Triglyceride Reference Range: Low Risk <150 [id number] High Risk 200-499 Very High Risk>=500 Cholesterol Reference Range: Low Risk <200 [id number] High Risk>240 HDL Cholesterol Reference Range: Low Risk >=60 High Risk <40 LDL Cholesterol Reference Range: Optimal<100 Near Noqsrij601-616 Sgvsbvlukv464-287 Fxkb359-293 Very High >=190 * 2D Echo W/Doppler(CW/PW/Color) (09/06/2016 9:20 AM) Specimen Performing Laboratory [facility] Narrative Echocardiography Laboratory [address] [place] [address] Voice:[phone] Transthoracic Echocardiogram Pat.Name:LARA TORRES Pat.ID:[id number] .Date: 09/06/2016 Refer.MD:EDGAR WESTON Exam Time: 9:20:00 AMStudy Type:Echo Complete Height:64inWeight:156lb BSA: 1.76 m2 DOBAge[age]Y Sex: MALEBP: 89/56 HR:98 bpmSonogrphr: Kylah Mccracken RCS Pat. Stat.:OutpatientRoom:OP Reason for Study:Known or suspected heart failure History / Clinical:Congestive Heart Failure, Coronary artery disease, ESRD, Hypertension Procedures:2D ECHO W/ DOPPLER (CW/PW/COLOR), 2D, M-mode, Doppler, Color Flow SUMMARY: Regular sinus rhythm during the exam. Technically fair exam. The LV apex is incompletely visualized due to foreshortening. The other segments are hypokinetic. Estimated LVEF by qualitative assessment is spipvjnc-ij-jmyssfxm reduced (30%). Unable to reliably assess LV ejection fraction. LA size is severely enlarged. RV chamber size is markedly enlarged (>4 cm basal diameter) with decreased systolic function. At least moderate MR is present. 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 Estimated Peak systolic pressure is at least 60-65 mmHg. The estimated RA pressure by IVC dynamics 11-15 mmHg. Aortic root size (Sinus of Valsalva diameter) is mildly dilated at approximately 3.8 cm. No significant pericardial effusion is visualized. FINDINGS: Rhythm/BP: Regular sinus rhythm during the exam. LV: All of the LV segments are severely hypokinetic. Left ventricularchamber size (by vol index) is severely enlarged(male - LVED vol > 100 ml/m2). Estimated LVEF by qualitativeassessment is utyoerjn-uh-xkfwkrvj reduced (30%).The LV apex is incompletely visualized due to foreshortening.Likely grade 3 diastolic dysfunction (markedlyelevated LA pressure). Assessment less accurate inthe setting of MR. Unable to reliably assess LV ejection fraction.Septal motion is abnormal The other segments are hypokinetic. LA: LA size is severely enlarged. RV: RV chamber size is markedly enlarged (>4 cm basal diameter) withdecreased systolic function. RA: RA cavity size is enlarged. AV: Mild AoV cusp thickening. Mild to moderate aortic regurgitation.Mild AoV cusp calcification. MV: At least moderate MR is present. The mechanism for MR is leaflettethering. TV: Moderate, central tricuspid regurgitation. Estimated Peak systolicpressure is at least 60-65 mmHg. PV: PV is not well visualized; function appears normal by Dopplervisualized. AO: Aortic root size (Sinus of Valsalva diameter) is mildly dilatedat approximately 3.8 cm. Pericard: No significant pericardial effusion is visualized. Systemic Veins: The inferior vena cava size is mildly increased. The estimatedRA pressure by IVC dynamics 11-15 mmHg. Comparison: No prior exam available for comparison. Quality:Technically fair exam. MEASUREMENTS: 2D LV EF SinglePlane LV Ad 64.3 cm2(9.5-22.3)* LV CO 6.38 l/min LV As 53.4 cm2(4-11.6)* LV SV 69.4 ml [id number] ml (65-193)* Pltty553 ml/m2 HR 92 bpm WPWRR527 ml Left Ventricle LV A% 17.1 %(36-64)* LV CI 3.63 l/min/m2 Left Atrium LA a-p 5.5 cm (2.8-3.4)* LA Sng Plane LA Vol 124 mlIndex 70.4 ml/m2 LA Area 33.8 cm2(8.8-23.4)* Ventricular Septum IVSs1.27 cm LVPW LVPWd 5.91 cmLVPW%th -97.8 % LVPWs0.131 cm Parasternal [place] Ao An 2.35 cm (1.4-2.6) LV%fs 12.9 %(25-46)* Ao Rtd3.96 cmLVPWd 1.22 cm IVSd 0.872 cm LA Ds 5.87 cm (2.3-3.9)* LVIDd7 cm (4.3-5.1)* LV Wmn 1.05 cm LVIDs6.1 cm (2-4)* DOPPLER Stroke Vol & Cardiac Out HR94 bpmSV 65.5 ml july 2.3 cm CO 6.15 l/min VTI15.8 cm AV Pressure Half Time AV P1/2t 481 msec RA Velocity TI lynnette 386 cm/Dara Press 59.4 mmHg DEFAULT DEFA Em 8.01 cm/sDEFA E/Em 18.6 Signed 09/06/2016 07:56 PM Judah Bae M.D. Procedure Note Interface, External Ris In - 09/06/2016 7:57 PM CDT Echocardiography Laboratory [address] [place] [address] Voice: [phone] Transthoracic Echocardiogram Pat.Name: LARA TORRES.ID: [id number] St.Date: 09/06/2016 Refer.MD: EDGAR WESTON Exam Time: 9:20:00 AM Study Type:Echo Complete Height: 64in Weight: 156lb BSA: 1.76 m2 Age: 6 1945,70Y Sex: MALE BP: 89/56 HR: 98 bpm Sonogrphr: Kylah LEE Pat. Stat.:Outpatient Room: OP Reason for Study:Known or suspected heart failure History / Clinical:Congestive Heart Failure, Coronary artery disease, ESRD, Hypertension Procedures:2D ECHO W/ DOPPLER (CW/PW/COLOR), 2D, M-mode, Doppler, Color Flow SUMMARY: Regular sinus rhythm during the exam. Technically fair exam. The LV apex is incompletely visualized due to foreshortening. The other segments are hypokinetic. Estimated LVEF by qualitative assessment is gdumwias-ih-uufunbtt reduced (30%). Unable to reliably assess LV ejection fraction. LA size is severely enlarged. RV chamber size is markedly enlarged (>4 cm basal diameter) with decreased systolic function. At least moderate MR is present. 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 Estimated Peak systolic pressure is at least 60-65 mmHg. The estimated RA pressure by IVC dynamics 11-15 mmHg. Aortic root size (Sinus of Valsalva diameter) is mildly dilated at approximately 3.8 cm. No significant pericardial effusion is visualized. FINDINGS: Rhythm/BP: Regular sinus rhythm during the exam. LV: All of the LV segments are severely hypokinetic. Left ventricular chamber size (by vol index) is severely enlarged (male - LVED vol > 100 ml/m2). Estimated LVEF by qualitative assessment is vfbigevl-lf-qeycxiut reduced (30%). The LV apex is incompletely visualized due to foreshortening. Likely grade 3 diastolic dysfunction (markedly elevated LA pressure). Assessment less accurate in the setting of MR. Unable to reliably assess LV ejection fraction. Septal motion is abnormal The other segments are hypokinetic. LA: LA size is severely enlarged. RV: RV chamber size is markedly enlarged (>4 cm basal diameter) with decreased systolic function. RA: RA cavity size is enlarged. AV: Mild AoV cusp thickening. Mild to moderate aortic regurgitation. Mild AoV cusp calcification. MV: At least moderate MR is present. 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 TV: Moderate, central tricuspid regurgitation. Estimated Peak systolic pressure is at least 60-65 mmHg. PV: PV is not well visualized; function appears normal by Doppler visualized. AO: Aortic root size (Sinus of Valsalva diameter) is mildly dilated at approximately 3.8 cm. Pericard: No significant pericardial effusion is visualized. Systemic Veins: The inferior vena cava size is mildly increased. The estimated RA pressure by IVC dynamics 11-15 mmHg. Comparison: No prior exam available for comparison. Quality: Technically fair exam. MEASUREMENTS: 2D LV EF SinglePlane LV Ad 64.3 cm2 (9.5-22.3)* LV CO 6.38 l/min LV As 53.4 cm2 (4-11.6)* LV SV 69.4 ml LVEDV 303 ml (65-193)* Index 172 ml/m2 HR 92 bpm LVESV 233 ml Left Ventricle LV A% 17.1 % (36-64)* LV CI 3.63 l/min/m2 Left Atrium LA a-p 5.5 cm (2.8-3.4)* LA Sng Plane LA Vol 124 ml Index 70.4 ml/m2 LA Area 33.8 cm2 (8.8-23.4)* Ventricular Septum IVSs 1.27 cm LVPW LVPWd 5.91 cm LVPW%th -97.8 % LVPWs 0.131 cm Parasternal Long [place] Ao An 2.35 cm (1.4-2.6) LV%fs 12.9 % (25-46)* Ao Rtd 3.96 cm LVPWd 1.22 cm IVSd 0.872 cm LA Ds 5.87 cm (2.3-3.9)* LVIDd 7 cm (4.3-5.1)* LV Wmn 1.05 cm LVIDs 6.1 cm (2-4)* DOPPLER Stroke Vol & Cardiac Out HR 94 bpm SV 65.5 ml july 2.3 cm CO 6.15 l/min VTI 15.8 cm AV Pressure Half Time AV P1/2t 481 msec RA Velocity TI lynnette 386 cm/s RA Press 59.4 mmHg DEFAULT DEFA Em 8.01 cm/s DEFA E/Em 18.6 Signed 09/06/2016 07:56 PM Judah Bae M.D. after 06/27/2016
--- OUTSIDE RECORDS SUMMARY | 2017-06-28 08:22 | XMS REPORT | Clinical Summary ---
Author Author [facility] Address Unknown Phone Unavailable Care Team Providers Care Child Neurologist Name Role Phone Arnulfo Saunders MD PCP Allergies Not on File Current Medications Not on file Active Problems Not on file Encounters Date Type Specialty Care Team Description 04/20/2017 Lab Lab Jun Saunders MD Pleural effusion, transudate (Primary Dx) 04/20/2017 Lab Jun Steen MD 01/25/2017 Lab Lab Jun Saunders MD Pleural effusion, transudate (Primary Dx) 01/25/2017 Lab Lab Jun Saunders MD after 06/27/2016 Social History Tobacco Use Types Packs/Day Years Used Date Never Assessed Sex Assigned at Date Recorded Not on file Last Filed Vital Signs Not on file Plan of Treatment Health Maintenance Due Date Last Done Comments COLONOSCOPY 11/10/1995 ZOSTER VACCINE 2005 PNEUMOCOCCAL 2010 POLYSACCHARIDE VACCINE AGE 65 AND OVER PNEUMOCOCCAL-13 2010 INFLUENZA VACCINE Completed 02/20/2017 Results * Cytology (non-gynecological) request (04/20/2017 3:41 PM) Only the most recent of 2 results within the time period is included. Component Value Ref Range Cytology See link below for PDF Lab Report (non-gynecological) report Result status This is Final Report to [id number] Specimen Performing Laboratory [facility] DEPARTMENT OF PATHOLOGY AND GENOMIC MEDICINE [address] [place] [id number] * Fungus smear (04/20/2017 2:31 PM) Only the most recent of 2 results within the time period is included. Component Value Ref Range Fungus smear No fungi observed. Comment: Specimen Information Specimen Source: Thoracentesis fluid Specimen Site: Not otherwise specified Specimen Performing Laboratory Thoracentesis fluid - Not [facility] DEPARTMENT OF PATHOLOGY AND GENOMIC MEDICINE otherwise specified [address] [place] [address] * AFB culture (04/20/2017 2:31 PM) Only the most recent of 2 results within the time period is included. Component Value Ref Range AFB culture isolate No growth after 6 weeks of incubation. Comment: Specimen Information Specimen Source: Thoracentesis fluid Specimen Site: Not otherwise specified Specimen Performing Laboratory Thoracentesis fluid - Not [facility] DEPARTMENT OF PATHOLOGY AND GENOMIC [facility] otherwise specified [address] [address] * Aerobic culture (04/20/2017 2:31 PM) Only the most recent of 2 results within the time period is included. Component Value Ref Range Aerobic culture isolate No growth after 3 days. Comment: Specimen Information Specimen Source: Thoracentesis fluid Specimen Site: Not otherwise specified Specimen Performing Laboratory Thoracentesis fluid - Not [facility] DEPARTMENT OF PATHOLOGY AND [facility] otherwise specified [address] [place] [id number] * Gram stain (04/20/2017 2:31 PM) Only the most recent of 2 results within the time period is included. Component Value Ref Range Gram stain isolate Rare WBC's No organisms seen Comment: Specimen Information Specimen Source: Thoracentesis fluid Specimen Site: Not otherwise specified Specimen Performing Laboratory Thoracentesis fluid - Not [facility] DEPARTMENT OF PATHOLOGY AND GENOMIC [facility] otherwise specified [address] [place] [id number] * AFB stain (04/20/2017 2:31 PM) Only the most recent of 2 results within the time period is included. Component Value Ref Range AFB stain No acid fast bacilli (AFB) seen. Comment: Specimen Information Specimen Source: Thoracentesis fluid Specimen Site: Not otherwise specified Specimen Performing Laboratory Thoracentesis fluid - Not [facility] DEPARTMENT OF PATHOLOGY AND GENOMIC [facility] otherwise specified [address] [place] [address] * Fungus culture (04/20/2017 2:31 PM) Only the most recent of 2 results within the time period is included. Component Value Ref Range Fungus culture isolate No growth after 4 weeks of incubation. Comment: Specimen Information Specimen Source: Thoracentesis fluid Specimen Site: Not otherwise specified Specimen Performing Laboratory Thoracentesis fluid - Not [facility] DEPARTMENT OF PATHOLOGY AND [facility] otherwise specified [address] [place] [phone] * Cell count and differential, body fluid (04/20/2017 2:31 PM) Only the most recent of 2 results within the time period is included. Component Value Ref Range Misc fluid type Thoracentesis Color, fluid Red Appearance, fluid Cloudy (A) RBC, fluid 434,000 /CMM Nucleated cells, fluid 588 /CMM Fluid mononuclear cell See Diff Neutrophils, fluid 30 % Lymphocytes, fluid 54 % Eosinophils, fluid 2 % Macrophages, fluid 14 % Specimen Performing Laboratory Fluid [facility] DEPARTMENT OF PATHOLOGY AND GENOMIC MEDICINE [address] [place] [id number] * LDH, misc fluid (04/20/2017 2:31 PM) Only the most recent of 2 results within the time period is included. Component Value Ref Range Fluid type Thoracentesis LDH, fluid 786 U/L Comment: Analysis performed on Malka 8000 analyzer. This is not an approved methodology for this specimen type; accuracy and clinical significance uncertain. Specimen Performing Laboratory Fluid [facility] DEPARTMENT OF PATHOLOGY AND GENOMIC MEDICINE [address] [place] [id number] * Hematocrit, misc fluid (01/25/2017 5:05 PM) Component Value Ref Range Fluid type Pleural Hematocrit, fluid 9.1 % Specimen Performing Laboratory Fluid [facility] DEPARTMENT OF PATHOLOGY AND GENOMIC MEDICINE [address] [place] [id number] after 06/27/2016 Insurance Payer Benefit Subscriber ID Type Phone Address Plan / Group MEDICARE MEDICARE [id number] Medicare [place], [place] PART A AND B BCBS BCBS [id number] PPO CHOICE [place] [address]
--- OUTSIDE RECORDS SUMMARY | 2017-06-28 08:22 | XMS REPORT ---
Author Author [facility] Address Unknown Phone Unavailable Care Team Providers Care Bone Worker Name Role Phone EDGAR SWANSON Unavailable Unavailable PRATIK CANALES Unavailable Unavailable RADHA SAUNDERS Unavailable Unavailable Problems This patient has no known problems. Allergies, Adverse Reactions, Alerts This patient has no known allergies or adverse reactions. Medications This patient has no known medications. Results Test Description Test Time Test Comments Text Results Atomic Results Result Comments B-TYPE NATRIURETIC FACTOR (BNP) 2017-06-21 11:16:00 B-TYPE NATRIURETIC PEPTIDE (BEAKER) (test ftgh=796) 848 pg/mL 0-100 HEPATIC FUNCTION [id number] 11:16:00* Test Item Value Reference Range Comments TOTAL PROTEIN (BEAKER) (test onbj=907) 7.4 gm/dL 6.0-8.3 ALBUMIN (BEAKER) (test cyky=1510) 3.5 g/dL 3.5-5.0 BILIRUBIN TOTAL (BEAKER) (test fxpv=010) 0.5 mg/dL 0.2-1.2 BILIRUBIN DIRECT (BEAKER) (test csfb=094) 0.2 mg/dL 0.1-0.5 ALKALINE PHOSPHATASE (BEAKER) (test wxxy=546) 77 U/L 40-150 AST (SGOT) (BEAKER) (test pvlt=792) 12 U/L 5-34 ALT (SGPT) (BEAKER) (test rfpu=200) 11 U/L 6-55 BASIC METABOLIC [id number] 11:16:00* Test Item Value Reference Range Comments SODIUM (BEAKER) (test sens=780) 139 meq/L 136-145 POTASSIUM (BEAKER) (test tujp=112) 4.6 meq/L 3.5-5.1 CHLORIDE (BEAKER) (test dhxu=601) 96 meq/L 98-107 CO2 (BEAKER) (test prjy=808) 30 meq/L 22-29 BLOOD UREA NITROGEN (BEAKER) (test eoin=050) 37 mg/dL 7-21 CREATININE (BEAKER) (test xjzg=137) 6.45 mg/dL 0.57-1.25 GLUCOSE RANDOM (BEAKER) (test rgrr=333) 96 mg/dL 70-105 CALCIUM (BEAKER) (test btzs=868) 10.0 mg/dL 8.4-10.2 EGFR (BEAKER) (test uesl=3419) 9 mL/min/1.73 sq m ESTIMATED GFR IS NOT ACCURATE CREATININE CLEARANCE IN PREDICTING GLOMERULAR FILTRATION RATE. ESTIMATED GFR IS NOT APPLICABLE FOR DIALYSIS PATIENTS. CBC W/PLT COUNT & AUTO [id number] 10:49:00* Test Item Value Reference Range Comments WHITE BLOOD CELL COUNT (BEAKER) (test smsf=925) 6.3 K/ L 3.5-10.5 RED BLOOD CELL COUNT (BEAKER) (test xwfc=009) 4.45 M/ L 4.63-6.08 HEMOGLOBIN (BEAKER) (test jktp=176) 13.8 GM/DL 13.7-17.5 HEMATOCRIT (BEAKER) (test jeal=449) 44.3 % 40.1-51.0 MEAN CORPUSCULAR VOLUME (BEAKER) (test nbla=472) 99.6 fL 79.0-92.2 MEAN CORPUSCULAR HEMOGLOBIN (BEAKER) (test nprv=153) 31.0 pg 25.7-32.2 MEAN CORPUSCULAR HEMOGLOBIN CONC (BEAKER) (test drvy=570) 31.2 GM/DL 32.3- 36.5 RED CELL DISTRIBUTION WIDTH (BEAKER) (test rjxv=445) 14.2 % 11.6-14.4 PLATELET COUNT (BEAKER) (test vmvb=973) 197 K/CU MM 150-450 MEAN PLATELET VOLUME (BEAKER) (test lhwg=686) 9.8 fL 9.4-12.4 NUCLEATED RED BLOOD CELLS (BEAKER) (test flaq=878) 0 /100 WBC 0-0 NEUTROPHILS RELATIVE PERCENT (BEAKER) (test wlft=100) 69 % LYMPHOCYTES RELATIVE PERCENT (BEAKER) (test bpaq=462) 13 % MONOCYTES RELATIVE PERCENT (BEAKER) (test qpds=601) 11 % EOSINOPHILS RELATIVE PERCENT (BEAKER) (test uuvb=704) 5 % BASOPHILS RELATIVE PERCENT (BEAKER) (test njrg=502) 1 % NEUTROPHILS ABSOLUTE COUNT (BEAKER) (test ffdz=231) 4.33 K/ L 1.78-5.38 LYMPHOCYTES ABSOLUTE COUNT (BEAKER) (test wtjs=067) 0.80 K/ L 1.32-3.57 MONOCYTES ABSOLUTE COUNT (BEAKER) (test qiec=697) 0.70 K/ L 0.30-0.82 EOSINOPHILS ABSOLUTE COUNT (BEAKER) (test dyak=359) 0.30 K/ L 0.04-0.54 BASOPHILS ABSOLUTE COUNT (BEAKER) (test uhbe=948) 0.04 K/ L 0.01-0.08 IMMATURE GRANULOCYTES-RELATIVE PERCENT (BEAKER) (test efbi=7817) 1 % 0-1 B-TYPE NATRIURETIC FACTOR (BNP)2017-03-08 10:58:00* Test Item Value Reference Range Comments B-TYPE NATRIURETIC PEPTIDE (BEAKER) (test nrve=581) 1571 pg/mL 0-100 BASIC METABOLIC [id number] 10:54:00* Test Item Value Reference Range Comments SODIUM (BEAKER) (test mplk=295) 143 meq/L 136-145 POTASSIUM (BEAKER) (test sgvo=290) 4.6 meq/L 3.5-5.1 CHLORIDE (BEAKER) (test ymwj=774) 99 meq/L 98-107 CO2 (BEAKER) (test rhsb=524) 33 meq/L 22-29 BLOOD UREA NITROGEN (BEAKER) (test acrs=759) 32 mg/dL 7-21 CREATININE (BEAKER) (test ktps=042) 6.82 mg/dL 0.57-1.25 GLUCOSE RANDOM (BEAKER) (test tljp=169) 98 mg/dL 70-105 CALCIUM (BEAKER) (test ohcr=167) 9.1 mg/dL 8.4-10.2 EGFR (BEAKER) (test orsg=7712) 8 mL/min/1.73 sq m ESTIMATED GFR IS NOT ACCURATE CREATININE CLEARANCE IN PREDICTING GLOMERULAR FILTRATION RATE. ESTIMATED GFR IS NOT APPLICABLE FOR DIALYSIS PATIENTS. CBC W/PLT COUNT & AUTO [id number] 10:29:00* Test Item Value Reference Range Comments WHITE BLOOD CELL COUNT (BEAKER) (test qrhf=685) 6.4 K/ L 3.5-10.5 RED BLOOD CELL COUNT (BEAKER) (test iytq=393) 5.00 M/ L 4.63-6.08 HEMOGLOBIN (BEAKER) (test marz=949) 15.3 GM/DL 13.7-17.5 HEMATOCRIT (BEAKER) (test vjyz=339) 48.9 % 40.1-51.0 MEAN CORPUSCULAR VOLUME (BEAKER) (test yxqe=994) 97.8 fL 79.0-92.2 MEAN CORPUSCULAR HEMOGLOBIN (BEAKER) (test zham=994) 30.6 pg 25.7-32.2 MEAN CORPUSCULAR HEMOGLOBIN CONC (BEAKER) (test wqvu=553) 31.3 GM/DL 32.3- 36.5 RED CELL DISTRIBUTION WIDTH (BEAKER) (test aqbp=189) 16.1 % 11.6-14.4 PLATELET COUNT (BEAKER) (test svgh=640) 143 K/CU MM 150-450 MEAN PLATELET VOLUME (BEAKER) (test twbh=872) 10.3 fL 9.4-12.4 NUCLEATED RED BLOOD CELLS (BEAKER) (test mwpn=683) 0 /100 WBC 0-0 NEUTROPHILS RELATIVE PERCENT (BEAKER) (test aosn=876) 75 % LYMPHOCYTES RELATIVE PERCENT (BEAKER) (test ncdl=203) 10 % MONOCYTES RELATIVE PERCENT (BEAKER) (test nlgf=702) 10 % EOSINOPHILS RELATIVE PERCENT (BEAKER) (test utih=215) 5 % BASOPHILS RELATIVE PERCENT (BEAKER) (test dahz=291) 0 % NEUTROPHILS ABSOLUTE COUNT (BEAKER) (test bcoh=306) 4.80 K/ L 1.78-5.38 LYMPHOCYTES ABSOLUTE COUNT (BEAKER) (test kzwf=900) 0.67 K/ L 1.32-3.57 MONOCYTES ABSOLUTE COUNT (BEAKER) (test xpbu=731) 0.63 K/ L 0.30-0.82 EOSINOPHILS ABSOLUTE COUNT (BEAKER) (test vcou=102) 0.30 K/ L 0.04-0.54 BASOPHILS ABSOLUTE COUNT (BEAKER) (test otfb=098) 0.02 K/ L 0.01-0.08 IMMATURE GRANULOCYTES-RELATIVE PERCENT (BEAKER) (test jiid=0344) 0 % 0-1 BASIC METABOLIC [id number] 12:26:00* Test Item Value Reference Range Comments SODIUM (BEAKER) (test dkfu=467) 140 meq/L 136-145 POTASSIUM (BEAKER) (test wwjq=117) 4.5 meq/L 3.5-5.1 CHLORIDE (BEAKER) (test rjxn=329) 100 meq/L 98-107 CO2 (BEAKER) (test aecm=441) 30 meq/L 22-29 BLOOD UREA NITROGEN (BEAKER) (test glbr=592) 44 mg/dL 7-21 CREATININE (BEAKER) (test rhwd=580) 8.24 mg/dL 0.57-1.25 GLUCOSE RANDOM (BEAKER) (test ftwh=951) 95 mg/dL 70-105 CALCIUM (BEAKER) (test qnpd=119) 9.5 mg/dL 8.4-10.2 EGFR (BEAKER) (test kfow=2598) 6 mL/min/1.73 sq m ESTIMATED GFR IS NOT ACCURATE CREATININE CLEARANCE IN PREDICTING GLOMERULAR FILTRATION RATE. ESTIMATED GFR IS NOT APPLICABLE FOR DIALYSIS PATIENTS. [id number] 12:15:00* Test Item Value Reference Range Comments PARTIAL THROMBOPLASTIN TIME (BEAKER) (test sdad=800) 32.9 seconds 22.5-36.0 Within 24 hours, if on CoumadinPROTHROMBIN TIME/[id number] 12:14:00* Test Item Value Reference Range Comments PROTIME (BEAKER) (test gqmu=799) 12.6 seconds 11.7-14.7 INR (BEAKER) (test izqo=841) 1.0 <=5.9 RECOMMENDED COUMADIN/WARFARIN INR THERAPY RANGESSTANDARD DOSE: 2.0 - 3.0 Includes: PROPHYLAXIS for venous thrombosis, systemic embolization; TREATMENT for venous thrombosis and/or pulmonary embolus.HIGH RISK: Target INR is 2.5-3.5 for patients with mechanical heart valves.Within 24 hours, if on CoumadinCBC W/ PLT COUNT & AUTO [id number] 12:09:00* Test Item Value Reference Range Comments WHITE BLOOD CELL COUNT (BEAKER) (test mldg=606) 6.9 K/ L 3.5-10.5 RED BLOOD CELL COUNT (BEAKER) (test ewce=964) 4.69 M/ L 4.63-6.08 HEMOGLOBIN (BEAKER) (test uhek=802) 14.3 GM/DL 13.7-17.5 HEMATOCRIT (BEAKER) (test tapj=161) 45.4 % 40.1-51.0 MEAN CORPUSCULAR VOLUME (BEAKER) (test sybb=510) 96.8 fL 79.0-92.2 MEAN CORPUSCULAR HEMOGLOBIN (BEAKER) (test jnig=569) 30.5 pg 25.7-32.2 MEAN CORPUSCULAR HEMOGLOBIN CONC (BEAKER) (test fcot=113) 31.5 GM/DL 32.3- 36.5 RED CELL DISTRIBUTION WIDTH (BEAKER) (test gsln=891) 15.0 % 11.6-14.4 PLATELET COUNT (BEAKER) (test tvtr=855) 170 K/CU MM 150-450 MEAN PLATELET VOLUME (BEAKER) (test ipyj=900) 10.1 fL 9.4-12.4 NUCLEATED RED BLOOD CELLS (BEAKER) (test rvjy=688) 0 /100 WBC 0-0 NEUTROPHILS RELATIVE PERCENT (BEAKER) (test cnox=569) 82 % LYMPHOCYTES RELATIVE PERCENT (BEAKER) (test uipj=230) 7 % MONOCYTES RELATIVE PERCENT (BEAKER) (test qspr=112) 9 % EOSINOPHILS RELATIVE PERCENT (BEAKER) (test hgal=948) 2 % BASOPHILS RELATIVE PERCENT (BEAKER) (test upvy=451) 0 % NEUTROPHILS ABSOLUTE COUNT (BEAKER) (test qxko=493) 5.65 K/ L 1.78-5.38 LYMPHOCYTES ABSOLUTE COUNT (BEAKER) (test hjjx=500) 0.45 K/ L 1.32-3.57 MONOCYTES ABSOLUTE COUNT (BEAKER) (test eyrf=297) 0.63 K/ L 0.30-0.82 EOSINOPHILS ABSOLUTE COUNT (BEAKER) (test zing=180) 0.15 K/ L 0.04-0.54 BASOPHILS ABSOLUTE COUNT (BEAKER) (test xkst=358) 0.01 K/ L 0.01-0.08 IMMATURE GRANULOCYTES-RELATIVE PERCENT (BEAKER) (test gveb=5686) 0 % 0-1 FLOW PRA CLASS I AND [id number] 13:39:00* Test Item Value Reference Range Comments DATE OF SERUM (BEAKER) (test wqzy=5273) [id number] SERUM # (BEAKER) (test ejjr=9521) [id number] FLOW PRA CLASS I AND II (test ooyk=0759) See Scanned Report B-TYPE NATRIURETIC FACTOR (BNP)2016-12-21 10:16:00* Test Item Value Reference Range Comments B-TYPE NATRIURETIC PEPTIDE (BEAKER) (test alzm=340) 2682 pg/mL 0-100 BASIC METABOLIC [id number] 10:13:00* Test Item Value Reference Range Comments SODIUM (BEAKER) (test adse=745) 141 meq/L 136-145 POTASSIUM (BEAKER) (test vdcn=576) 4.8 meq/L 3.5-5.1 CHLORIDE (BEAKER) (test jisl=468) 101 meq/L 98-107 CO2 (BEAKER) (test zdxj=761) 31 meq/L 22-29 BLOOD UREA NITROGEN (BEAKER) (test yplc=982) 25 mg/dL 7-21 CREATININE (BEAKER) (test cqco=713) 6.14 mg/dL 0.57-1.25 GLUCOSE RANDOM (BEAKER) (test eibl=351) 89 mg/dL 70-105 CALCIUM (BEAKER) (test lqsj=722) 9.9 mg/dL 8.4-10.2 EGFR (BEAKER) (test szrd=8454) 9 mL/min/1.73 sq m ESTIMATED GFR IS NOT ACCURATE CREATININE CLEARANCE IN PREDICTING GLOMERULAR FILTRATION RATE. ESTIMATED GFR IS NOT APPLICABLE FOR DIALYSIS PATIENTS. CBC W/PLT COUNT & AUTO [id number] 09:46:00* Test Item Value Reference Range Comments WHITE BLOOD CELL COUNT (BEAKER) (test hajf=137) 6.2 K/ L 3.5-10.5 RED BLOOD CELL COUNT (BEAKER) (test stoq=853) 4.72 M/ L 4.63-6.08 HEMOGLOBIN (BEAKER) (test eokd=862) 15.0 GM/DL 13.7-17.5 HEMATOCRIT (BEAKER) (test xczs=569) 47.2 % 40.1-51.0 MEAN CORPUSCULAR VOLUME (BEAKER) (test fxiu=027) 100.0 fL 79.0-92.2 MEAN CORPUSCULAR HEMOGLOBIN (BEAKER) (test tdhk=848) 31.8 pg 25.7-32.2 MEAN CORPUSCULAR HEMOGLOBIN CONC (BEAKER) (test lffn=515) 31.8 GM/DL 32.3- 36.5 RED CELL DISTRIBUTION WIDTH (BEAKER) (test rlun=987) 13.2 % 11.6-14.4 PLATELET COUNT (BEAKER) (test qaxe=250) 199 K/CU MM 150-450 MEAN PLATELET VOLUME (BEAKER) (test wsmy=630) 9.9 fL 9.4-12.4 NUCLEATED RED BLOOD CELLS (BEAKER) (test yqaj=688) 0 /100 WBC 0-0 NEUTROPHILS RELATIVE PERCENT (BEAKER) (test hkrx=335) 68 % LYMPHOCYTES RELATIVE PERCENT (BEAKER) (test besg=277) 15 % MONOCYTES RELATIVE PERCENT (BEAKER) (test kwek=718) 11 % EOSINOPHILS RELATIVE PERCENT (BEAKER) (test lymj=271) 6 % BASOPHILS RELATIVE PERCENT (BEAKER) (test qdge=746) 1 % NEUTROPHILS ABSOLUTE COUNT (BEAKER) (test tnvc=979) 4.19 K/ L 1.78-5.38 LYMPHOCYTES ABSOLUTE COUNT (BEAKER) (test rspq=924) 0.93 K/ L 1.32-3.57 MONOCYTES ABSOLUTE COUNT (BEAKER) (test bwnp=209) 0.70 K/ L 0.30-0.82 EOSINOPHILS ABSOLUTE COUNT (BEAKER) (test uayu=203) 0.34 K/ L 0.04-0.54 BASOPHILS ABSOLUTE COUNT (BEAKER) (test atvs=485) 0.03 K/ L 0.01-0.08 IMMATURE GRANULOCYTES-RELATIVE PERCENT (BEAKER) (test yhkl=8884) 0 % 0-1 [id number] 13:33:00Medical Cytology Report Case: [id number] Authorizing Provider: Radha Saunders MD Collected: 10/20/2016 1430 Ordering Location: [facility] Radiology Ultrasound Received: 10/20/2016 6517 Pathologist: Moreno Chauhan MD Specimen: Pleural, Right RIGHT PLEURAL FLUID (CYTOSPINS) : - NO MALIGNANT CELLS IDENTIFIED Cytospins and cell block sections show rare mesothelial cells, macrophages in a background of scattered lymphocytes and blood elements. No diagnostic features of malignancy are seen. If clinically discordant, procurement of additional material may be considered when fluid re- accumulates.28469, 93324Qbxog pleural effusion, history of heart failureRIGHT PLEURAL [id number] mls bloody; 4 cytospinsCollected: [id number]: [id number] [facility], Department of Pathology, [address] [place] [address], Lbohtj [facility], Department of Pathology, [address] [place] [address] , DHRIZ METABOLIC [id number] 10:22:00* Test Item Value Reference Range Comments SODIUM (BEAKER) (test udel=394) 145 meq/L 136-145 POTASSIUM (BEAKER) (test egho=339) 5.8 meq/L 3.5-5.1 CHLORIDE (BEAKER) (test issu=411) 102 meq/L 98-107 CO2 (BEAKER) (test pdli=884) 32 meq/L 22-29 BLOOD UREA NITROGEN (BEAKER) (test lhio=785) 25 mg/dL 7-21 CREATININE (BEAKER) (test xyiv=464) 6.28 mg/dL 0.57-1.25 GLUCOSE RANDOM (BEAKER) (test eoqr=533) 103 mg/dL 70-105 CALCIUM (BEAKER) (test zrew=473) 11.5 mg/dL 8.4-10.2 EGFR (BEAKER) (test dnes=0399) 9 mL/min/1.73 sq m ESTIMATED GFR IS NOT ACCURATE CREATININE CLEARANCE IN PREDICTING GLOMERULAR FILTRATION RATE. ESTIMATED GFR IS NOT APPLICABLE FOR DIALYSIS PATIENTS. B-TYPE NATRIURETIC FACTOR (BNP)2016-10-26 10:21:00* Test Item Value Reference Range Comments B-TYPE NATRIURETIC PEPTIDE (BEAKER) (test hcus=721) 2778 pg/mL 0-100 CBC W/PLT COUNT & AUTO [id number] 10:02:00* Test Item Value Reference Range Comments WHITE BLOOD CELL COUNT (BEAKER) (test ajtj=488) 6.8 K/ L 4.0-10.0 RED BLOOD CELL COUNT (BEAKER) (test mdol=552) 4.22 M/ L 4.20-5.80 HEMOGLOBIN (BEAKER) (test hoxb=579) 14.2 GM/DL 13.0-16.8 HEMATOCRIT (BEAKER) (test rahp=164) 44.9 % 40.0-50.0 MEAN CORPUSCULAR VOLUME (BEAKER) (test ppal=406) 106.0 fL 82.0-98.0 MEAN CORPUSCULAR HEMOGLOBIN (BEAKER) (test ydgi=725) 33.5 pg 27.0-33.0 MEAN CORPUSCULAR HEMOGLOBIN CONC (BEAKER) (test txdi=802) 31.5 GM/DL 32.0- 36.0 RED CELL DISTRIBUTION WIDTH (BEAKER) (test qmfs=243) 15.3 % 10.3-14.2 PLATELET COUNT (BEAKER) (test dynj=981) 181 K/CU MM 150-430 MEAN PLATELET VOLUME (BEAKER) (test twzc=707) 7.4 fL 6.5-10.5 NUCLEATED RED BLOOD CELLS (BEAKER) (test kofp=169) 0 /100 WBC 0-0 NEUTROPHILS RELATIVE PERCENT (BEAKER) (test twwa=254) 67 % LYMPHOCYTES RELATIVE PERCENT (BEAKER) (test wupp=525) 16 % MONOCYTES RELATIVE PERCENT (BEAKER) (test tkvj=186) 12 % EOSINOPHILS RELATIVE PERCENT (BEAKER) (test uaxe=905) 4 % BASOPHILS RELATIVE PERCENT (BEAKER) (test axjv=093) 1 % NEUTROPHILS ABSOLUTE COUNT (BEAKER) (test onjr=276) 4.59 K/ L 1.80-8.00 LYMPHOCYTES ABSOLUTE COUNT (BEAKER) (test sjso=562) 1.07 K/ L 1.48-4.50 MONOCYTES ABSOLUTE COUNT (BEAKER) (test szfw=805) 0.84 K/ L 0.00-1.30 EOSINOPHILS ABSOLUTE COUNT (BEAKER) (test iycl=535) 0.30 K/ L 0.00-0.50 BASOPHILS ABSOLUTE COUNT (BEAKER) (test twdx=209) 0.04 K/ L 0.00-0.20 0.00BODY FLUID CULTURE + GRAM [id number] 00:57:00* Test Item Value Reference Range Comments CULTURE (BEAKER) (test evma=1599) No growth GRAM STAIN RESULT (BEAKER) (test tqkz=3700) 1+ WBCs GRAM STAIN RESULT (BEAKER) (test dwql=69472) No organisms seen BODY FLUID CELL COUNT WITH [id number] 21:53:00* Test Item Value Reference Range Comments APPEARANCE FLUID (BEAKER) (test rabg=741) Turbid Clear COLOR FLUID (BEAKER) (test eknt=914) Yellow Colorless, Straw RBC FLUID (BEAKER) (test gccv=419) 959759 /cu mm <=1 ADJUSTED WBC FLUID (BEAKER) (test kykg=8899) 200 /cu mm <=5 LINING CELLS (BEAKER) (test rppe=6295) 0 /cu mm <=1 NEUTROPHILS FLUID (BEAKER) (test tezh=0959) 12 % LYMPHS FLUID (BEAKER) (test bgda=051) 74 % MONO/MACROPHAGE FLUID (BEAKER) (test omku=653) 14 % EOSINOPHILS FLUID (BEAKER) (test nowa=404) 0 % BASO FLUID (BEAKER) (test mmpd=225) 0 % CONTAINER BODY FLUID (BEAKER) (test cdfa=6604) EDTA Tube LACTATE DEHYDROGENASE (LDH), BODY [id number] 20:23:00* Test Item Value Reference Range Comments LACTATE DEHYDROGENASE FLUID (BEAKER) (test mfee=815) 337 U/L Light's criteria identifies effusions if one or more are pre Absence of reference range indicates that normals have not been defined.Assay performance has not been validated for this type of specimen.PROTEIN, BODY [id number] 20:23:00* Test Item Value Reference Range Comments PROTEIN FLUID (BEAKER) (test ldkv=564) 2.5 g/dL Light's criteria identifies effusions if one or more are pre Absence of reference range indicates that normals have not been defined.Assay performance has not been validated for this type of specimen.GLUCOSE, BODY [id number] 20:23:00* Test Item Value Reference Range Comments GLUCOSE, BODY FLUID (BEAKER) (test wwlf=2349) 70 mg/dL 70-110 Absence of reference range indicates that normals have not been defined.Assay performance has not been validated for this type of specimen.PH, BODY [id number] 19:54:00* Test Item Value Reference Range Comments PH, BODY FLUID (BEAKER) (test xgjp=4671) 7.37 [id number] 12:57:00* Test Item Value Reference Range Comments PARTIAL THROMBOPLASTIN TIME (BEAKER) (test kaka=457) 33.1 seconds 22.5-36.0 PROTHROMBIN TIME/[id number] 12:53:00* Test Item Value Reference Range Comments PROTIME (BEAKER) (test fnai=784) 12.2 seconds 11.7-14.7 INR (BEAKER) (test vvno=791) 0.9 <=5.9 RECOMMENDED COUMADIN/WARFARIN INR THERAPY RANGESSTANDARD DOSE: 2.0 - 3.0 Includes: PROPHYLAXIS for venous thrombosis, systemic embolization; TREATMENT for venous thrombosis and/or pulmonary embolus.HIGH RISK: Target INR is 2.5-3.5 for patients with mechanical heart valves.PLATELET [id number] 12:39:00* Test Item Value Reference Range Comments PLATELET COUNT (BEAKER) (test oxmb=952) 162 K/CU MM 150-430 CBC W/PLT COUNT & AUTO [id number] 10:41:00* Test Item Value Reference Range Comments WHITE BLOOD CELL COUNT (BEAKER) (test wjvp=172) 6.5 K/ L 4.0-10.0 RED BLOOD CELL COUNT (BEAKER) (test mkfq=930) 4.12 M/ L 4.20-5.80 HEMOGLOBIN (BEAKER) (test qbkh=592) 14.4 GM/DL 13.0-16.8 HEMATOCRIT (BEAKER) (test odaa=231) 45.0 % 40.0-50.0 MEAN CORPUSCULAR VOLUME (BEAKER) (test utcf=524) 109.0 fL 82.0-98.0 MEAN CORPUSCULAR HEMOGLOBIN (BEAKER) (test ucmm=643) 34.9 pg 27.0-33.0 MEAN CORPUSCULAR HEMOGLOBIN CONC (BEAKER) (test petf=411) 32.0 GM/DL 32.0- 36.0 RED CELL DISTRIBUTION WIDTH (BEAKER) (test srjq=533) 14.4 % 10.3-14.2 PLATELET COUNT (BEAKER) (test edeo=421) 176 K/CU MM 150-430 MEAN PLATELET VOLUME (BEAKER) (test zmwz=415) 7.6 fL 6.5-10.5 NUCLEATED RED BLOOD CELLS (BEAKER) (test mpxb=410) 0 /100 WBC 0-0 NEUTROPHILS RELATIVE PERCENT (BEAKER) (test uxtc=353) 68 % LYMPHOCYTES RELATIVE PERCENT (BEAKER) (test yoaf=112) 16 % MONOCYTES RELATIVE PERCENT (BEAKER) (test szdj=189) 11 % EOSINOPHILS RELATIVE PERCENT (BEAKER) (test ajhh=042) 5 % BASOPHILS RELATIVE PERCENT (BEAKER) (test ohpn=958) 0 % NEUTROPHILS ABSOLUTE COUNT (BEAKER) (test lbar=891) 4.40 K/ L 1.80-8.00 LYMPHOCYTES ABSOLUTE COUNT (BEAKER) (test ncta=917) 1.02 K/ L 1.48-4.50 MONOCYTES ABSOLUTE COUNT (BEAKER) (test yahh=801) 0.68 K/ L 0.00-1.30 EOSINOPHILS ABSOLUTE COUNT (BEAKER) (test jvjy=071) 0.34 K/ L 0.00-0.50 BASOPHILS ABSOLUTE COUNT (BEAKER) (test ktnk=781) 0.03 K/ L 0.00-0.20 0.00B-TYPE NATRIURETIC FACTOR (BNP)2016-09-14 10:39:00* Test Item Value Reference Range Comments B-TYPE NATRIURETIC PEPTIDE (BEAKER) (test luwp=330) 4259 pg/mL 0-100 LIPID [id number] 10:38:00* Test Item Value Reference Range Comments TRIGLYCERIDES (BEAKER) (test pbpr=537) 74 mg/dL CHOLESTEROL (BEAKER) (test hngd=575) 174 mg/dL HDL CHOLESTEROL (BEAKER) (test pgnc=588) 66 mg/dL LDL CHOLESTEROL CALCULATED (BEAKER) (test zxgr=364) 93 mg/dL Triglyceride Reference Range: Low Risk <150 Borderline 150-199 High Risk 200-499 Very High Risk >=500Cholesterol Reference Range: Low Risk <200 Borderline 200-239 High Risk >240HDL Cholesterol Reference Range: Low Risk >=60 High Risk <40LDL Cholesterol Reference Range: Optimal <100 Near Optimal 100-129 Borderline 130-159 High 160-189 Very High >=190 HEPATIC FUNCTION [id number] 10:38:00* Test Item Value Reference Range Comments TOTAL PROTEIN (BEAKER) (test kevz=453) 7.1 gm/dL 6.0-8.3 ALBUMIN (BEAKER) (test dkmq=4749) 3.5 g/dL 3.5-5.0 BILIRUBIN TOTAL (BEAKER) (test tezl=934) 0.7 mg/dL 0.2-1.2 BILIRUBIN DIRECT (BEAKER) (test pqtf=452) 0.3 mg/dL 0.1-0.5 ALKALINE PHOSPHATASE (BEAKER) (test szmx=284) 55 U/L 40-150 AST (SGOT) (BEAKER) (test hzgy=208) 11 U/L 5-34 ALT (SGPT) (BEAKER) (test wije=081) 9 U/L 6-55 BASIC METABOLIC [id number] 10:38:00* Test Item Value Reference Range Comments SODIUM (BEAKER) (test okzl=480) 144 meq/L 136-145 POTASSIUM (BEAKER) (test lwwe=400) 4.5 meq/L 3.5-5.1 CHLORIDE (BEAKER) (test kzcj=333) 100 meq/L 98-107 CO2 (BEAKER) (test llcb=527) 32 meq/L 22-29 BLOOD UREA NITROGEN (BEAKER) (test yoyh=790) 27 mg/dL 7-21 CREATININE (BEAKER) (test olxd=004) 5.85 mg/dL 0.57-1.25 GLUCOSE RANDOM (BEAKER) (test rjge=160) 106 mg/dL 70-105 CALCIUM (BEAKER) (test btdc=131) 10.5 mg/dL 8.4-10.2 EGFR (BEAKER) (test ejrk=7576) 10 mL/min/1.73 sq m ESTIMATED GFR IS NOT ACCURATE CREATININE CLEARANCE IN PREDICTING GLOMERULAR FILTRATION RATE. ESTIMATED GFR IS NOT APPLICABLE FOR DIALYSIS PATIENTS. CBC W/PLT COUNT & AUTO [id number] 09:50:00* Test Item Value Reference Range Comments WHITE BLOOD CELL COUNT (BEAKER) (test mvxl=948) 5.7 K/ L 4.0-10.0 RED BLOOD CELL COUNT (BEAKER) (test atqw=594) 3.93 M/ L 4.20-5.80 HEMOGLOBIN (BEAKER) (test nsxh=097) 13.7 GM/DL 13.0-16.8 HEMATOCRIT (BEAKER) (test gvhb=639) 42.8 % 40.0-50.0 MEAN CORPUSCULAR VOLUME (BEAKER) (test qwrh=232) 109.0 fL 82.0-98.0 MEAN CORPUSCULAR HEMOGLOBIN (BEAKER) (test nbmk=088) 35.0 pg 27.0-33.0 MEAN CORPUSCULAR HEMOGLOBIN CONC (BEAKER) (test kgqd=079) 32.1 GM/DL 32.0- 36.0 RED CELL DISTRIBUTION WIDTH (BEAKER) (test hhle=667) 16.8 % 10.3-14.2 PLATELET COUNT (BEAKER) (test qmcm=725) 152 K/CU MM 150-430 MEAN PLATELET VOLUME (BEAKER) (test jzgn=916) 7.6 fL 6.5-10.5 NUCLEATED RED BLOOD CELLS (BEAKER) (test ztht=869) 0 /100 WBC 0-0 NEUTROPHILS RELATIVE PERCENT (BEAKER) (test bxoc=069) 68 % LYMPHOCYTES RELATIVE PERCENT (BEAKER) (test fdhn=297) 15 % MONOCYTES RELATIVE PERCENT (BEAKER) (test jriq=491) 11 % EOSINOPHILS RELATIVE PERCENT (BEAKER) (test dntr=543) 6 % BASOPHILS RELATIVE PERCENT (BEAKER) (test airr=892) 1 % NEUTROPHILS ABSOLUTE COUNT (BEAKER) (test piga=714) 3.84 K/ L 1.80-8.00 LYMPHOCYTES ABSOLUTE COUNT (BEAKER) (test yxgr=859) 0.84 K/ L 1.48-4.50 MONOCYTES ABSOLUTE COUNT (BEAKER) (test fcvj=292) 0.63 K/ L 0.00-1.30 EOSINOPHILS ABSOLUTE COUNT (BEAKER) (test lltw=245) 0.33 K/ L 0.00-0.50 BASOPHILS ABSOLUTE COUNT (BEAKER) (test eanp=480) 0.03 K/ L 0.00-0.20 0.00B-TYPE NATRIURETIC FACTOR (BNP)2016-08-17 09:44:00* Test Item Value Reference Range Comments B-TYPE NATRIURETIC PEPTIDE (BEAKER) (test udax=644) 1989 pg/mL 0-100 BASIC METABOLIC [id number] 09:43:00* Test Item Value Reference Range Comments SODIUM (BEAKER) (test vzsa=859) 145 meq/L 136-145 POTASSIUM (BEAKER) (test qguk=220) 4.1 meq/L 3.5-5.1 CHLORIDE (BEAKER) (test imgp=845) 101 meq/L 98-107 CO2 (BEAKER) (test rmdv=193) 32 meq/L 22-29 BLOOD UREA NITROGEN (BEAKER) (test mkgk=454) 25 mg/dL 7-21 CREATININE (BEAKER) (test pjcs=082) 5.69 mg/dL 0.57-1.25 GLUCOSE RANDOM (BEAKER) (test jooi=186) 98 mg/dL 70-105 CALCIUM (BEAKER) (test lzpg=567) 9.8 mg/dL 8.4-10.2 EGFR (AKER) (test dxkz=2762) 10 mL/min/1.73 sq m ESTIMATED GFR IS NOT ACCURATE CREATININE CLEARANCE IN PREDICTING GLOMERULAR FILTRATION RATE. ESTIMATED GFR IS NOT APPLICABLE FOR DIALYSIS PATIENTS.
[2017-06-28] MEDS ORDERED: MIDAZOLAM HCL 2 MG/2 ML VIAL IV STA (09:01)
--- NOTE | 2017-06-28 09:51 | Diagnostic Imaging Report ---
PROCEDURE: A single AP view of the chest. COMPARISON: Portable chest 03/30/2012. INDICATIONS: INTUBATION, CENTRAL LINE PLACEMENT FINDINGS: Lines/tubes: Endotracheal catheter is present with the tip projecting over the expected region of the trachea, position 4 cm from the nuzhat. An enteric feeding catheter is present with the tip extending below the inferior margin of the examination, likely within the gastric body. Left subclavian central venous catheter with tip projecting over the expected region of the superior vena cava. Cardiac device with lead projecting over the expected region of the right ventricle. Lungs: Airspace opacity in the right lung base. Pleura: Large right pleural effusion. No pneumothorax. Heart and mediastinum: The heart and the mediastinum are unremarkable. Median sternotomy wires. Bones: No acute bony abnormality. Degenerative changes of the thoracic spine. Median sternotomy wires. IMPRESSION: Airspace opacity in the right lung may represent atelectasis or developing pneumonia. Large right pleural effusion. Dictated by: Matthew Garcia M.D. on 06/28/2017 at 10:00 Electronically approved by: Matthew Garcia M.D. on 06/28/2017 at 10:00
--- NOTE | 2017-06-28 09:53 | Diagnostic Imaging Report ---
PROCEDURE:X-RAY ABDOMEN - KUB COMPARISON:None. INDICATIONS:NASOGASTRO TUBE PLACEMENT FINDINGS: Enteric feeding catheter is present with the tip projecting over the expected region of the mid stomach. There is a non-obstructed bowel-gas pattern. Retained oral contrast is present in the colon. There are no calcifications projected over the renal shadows, expected course of the ureters or bladder. There are no acute osseous abnormalities. The lung bases are clear. CONCLUSION: No acute radiographic abnormality. Dictated by: Matthew Garcia M.D. on 06/28/2017 at 10:02 Electronically approved by: Matthew Garcia M.D. on 06/28/2017 at 10:02
[2017-06-28] MEDS ORDERED: CEFEPIME HCL 1 GM VIAL IV STA (10:18)
[2017-06-28] MEDS ORDERED: VANCOMYCIN 1GM/NS 250 ML 250 ML IV STA (10:18)
[2017-06-28] MEDS: NOREPINEPHRINE BITARTRATE/ NS 250 ML IV SCH ×2 (10:20→12:20)
[2017-06-28 10:29] LABS: ABG PCO2 50 mmHg (41-51); ABG PH 7.39 (7.31-7.41); ABG PO2 448 mmHg (80-105)
[2017-06-28 10:30] LABS: ABG HCO3 31 mmol/L (23-28)
[2017-06-28] MEDS: MIDAZOLAM HCL 25 MG in SODIUM CHLORIDE 0.9% 50ML 45 ML IV PRN ×2 (10:30→12:41)
[2017-06-28 10:31] LABS: BASOPHILS % 0.2 % (0.0-1.0); EOSINOPHILS # (AUTO) 0.1 (0.0-0.4); EOSINOPHILS % 0.8 % (0.0-6.0); HEMOGLOBIN 12.5 g/dL (14.0-18.0); LYMPHOCYTES # (AUTO) 0.5 (1.0-3.2); LYMPHOCYTES % 3.9 % (18.0-39.1); MEAN CORPUSCULAR HEMOGLOBIN 31.4 pg (28-32); MEAN CORPUSCULAR HGB CONC 32.9 g/dL (31-35); MEAN CORPUSCULAR VOLUME 95.5 fL (81-99); MONOCYTES % 8.7 % (4.4-11.3); NEUTROPHILS # (AUTO) 10.1 (2.1-6.9); NEUTROPHILS % 85.5 % (38.7-80.0); PLATELET COUNT 192 x10e3/uL (140-360); RED BLOOD COUNT 3.98 x10e6/uL (4.3-5.7); RED CELL DISTRIBUTION WIDTH 13.7 % (11.7-14.4)
[2017-06-28 10:42] LABS: INR 0.86; PROTHROMBIN TIME 12.2 seconds (11.9-14.5)
[2017-06-28 10:43] LABS: PARTIAL THROMBOPLASTIN TIME 34.3 seconds (23.8-35.5)
[2017-06-28 10:53] LABS: ALBUMIN/GLOBULIN RATIO 0.7 (0.8-2.0); CALCIUM 10.2 mg/dL (8.4-10.2); CREATININE, SERUM 9.34 mg/dL (0.72-1.25)
[2017-06-28 11:05] LABS: ANION GAP 20.7 mmol/L (8-16); POTASSIUM 5.7 mmol/L (3.5-5.1)
[2017-06-28] MEDS ORDERED: MIDAZOLAM HCL 2 MG/2 ML VIAL IV ONE (11:30)
[2017-06-28] MEDS ORDERED: ETOMIDATE 2 MG/ML 10 ML INJ IV STA (12:14)
== END 2017-06-28 12:46 | disposition short-term general hospital (02) ==
LOC: ER 08:18
DX: J96.01 Acute respiratory failure with hypoxia (principal); J90 Pleural effusion, not elsewhere classified; J15.9 Unspecified bacterial pneumonia; I95.0 Idiopathic hypotension; E87.5 Hyperkalemia; I12.0 Hypertensive chronic kidney disease with stage 5 chronic kidney disease or end stage renal disease; N18.6 End stage renal disease; Z99.2 Dependence on renal dialysis
CPT/HCPCS: 31500; 36415; 36556; 36600; 51700; 71010; 74000; 80053; 82550; 82553; 82805; 83880; 84484; 85025; 85379; 85610; 85730; 93005; 94002; 99285; J0692; J2250 ×2; J3370; 71045; 74018